=== PATIENT | female | born 1945 | race Caucasian/White ===

== ENCOUNTER → 2017-10-05 | Outpatient (CLI) | payer BC ==
[2017-10-05 17:57] LABS: BASO ABS # 0.06 K/uL (0-0.2); EOS ABS # 0.12 K/uL (0-0.5); HEMATOCRIT 44.2 % (37-47); HEMOGLOBIN 14.9 g/dL (12.0-16.0); IG# 0.02 K/uL (0.00-0.02); LYMPH % 40.4 %; LYMPH ABS # 2.45 K/uL (1.2-3.4); MEAN CELL VOLUME 93.1 fL (80-100); MEAN CORPUSCULAR HEMOGLOBIN 31.4 pg (25-34); MEAN CORPUSCULAR HGB CONC 33.7 g/dl (32-36); MEAN PLATELET VOLUME 10.3 fL (7.4-10.4); MONO % 8.6 %; MONO ABS # 0.52 K/uL (0.11-0.59); NEUT % 47.7 %; NEUT ABS # 2.89 K/uL (1.4-6.5); PLATELET COUNT 220 K/uL (130-400); RED CELL DISTRIBUTION WIDTH CV 13.1 % (11.5-14.5); RED CELL DISTRIBUTION WIDTH SD 44.9 fL (36.4-46.3); WHITE BLOOD COUNT 6.06 K/uL (4.8-10.8)
[2017-10-05 18:43] LABS: ALBUMIN 3.8 gm/dl (3.4-5.0); BLOOD UREA NITROGEN 10 mg/dl (7-18); CALCIUM 9.5 mg/dl (8.5-10.1); CARBON DIOXIDE 30 mmol/L (21-32); CREATININE 0.67 mg/dl (0.60-1.20); GLUCOSE 111 mg/dl (70-99); POTASSIUM 4.6 mmol/L (3.5-5.1); SODIUM 133 mmol/L (136-145)
== END | disposition home or self-care (01) ==
LOC: C.LABMFLN 14:01
PROVIDERS: ATTEND Family Medicine
DX: I48.91 Unspecified atrial fibrillation (principal); E43 Unspecified severe protein-calorie malnutrition

== ENCOUNTER → 2018-01-15 | Outpatient (CLI) | payer BC ==
[2018-01-15 18:12] LABS: BASO % 0.9 %; BASO ABS # 0.07 K/uL (0-0.2); EOS % 1.7 %; EOS ABS # 0.13 K/uL (0-0.5); HEMATOCRIT 46.3 % (37-47); HEMOGLOBIN 15.4 g/dL (12.0-16.0); IG# 0.02 K/uL (0.00-0.02); LYMPH % 32.6 %; LYMPH ABS # 2.54 K/uL (1.2-3.4); MEAN CELL VOLUME 94.9 fL (80-100); MEAN CORPUSCULAR HEMOGLOBIN 31.6 pg (25-34); MEAN CORPUSCULAR HGB CONC 33.3 g/dl (32-36); MONO % 9.2 %; MONO ABS # 0.72 K/uL (0.11-0.59); NEUT % 55.3 %; NEUT ABS # 4.31 K/uL (1.4-6.5); PLATELET COUNT 220 K/uL (130-400); RED CELL DISTRIBUTION WIDTH CV 13.7 % (11.5-14.5); RED CELL DISTRIBUTION WIDTH SD 47.2 fL (36.4-46.3); WHITE BLOOD COUNT 7.79 K/uL (4.8-10.8)
== END | disposition home or self-care (01) ==
LOC: C.LABMFLN 11:16
PROVIDERS: ATTEND Family Medicine
DX: R19.5 Other fecal abnormalities (principal)